=== PATIENT | female | born 1990 | race Caucasian/White ===

== ENCOUNTER 2018-12-05 23:56 | Emergency (ER) | payer OTHER ==
[~2018-12-05] VITALS: Ht 162.6 cm; Wt 69.4 kg
[2018-12-06] MEDS ORDERED: BIRTH CONTROL (00:16)
[2018-12-06] MEDS ORDERED: LEVOTHYROXINE (00:16)
[2018-12-06 01:19] LABS: HEMATOCRIT 37.1 % (37.0-47.0); HEMOGLOBIN 12.2 gm/dL (12.0-15.0); MCH 28.9 pg (26.0-34.0); MCV 87.8 fL (80.0-100.0); RBC 4.22 mil/uL (4.20-5.00); RDW-CV 12.9 % (10.5-14.5); WBC 6.5 thou/uL (4.0-11.0)
[2018-12-06 01:30] LABS: PROTIME 10.4 Seconds (9.20-11.50)
[2018-12-06] MEDS ORDERED: MOBIC15 MG PO (01:34)
[2018-12-06 01:45] VITALS: BP 117/78
== END 2018-12-06 01:45 | disposition home or self-care (01) ==
LOC: M.ERS 23:56
PROVIDERS: Personal Emergency Response Attendant
DX: M79.651 Pain in right thigh (principal); Z88.0 Allergy status to penicillin